=== PATIENT | female | born 1970 | race Hispanic/Latino ===

== ENCOUNTER 2019-06-01 13:40 | Emergency (ER) | payer BC ==
[~2019-06-01] VITALS: Ht 162.6 cm; Wt 74.6 kg
--- OUTSIDE RECORDS SUMMARY | 2019-06-01 13:44 | XMS REPORT | Summary of Care ---
Author Author [facility] [place] Organization [facility] [place] Address Unknown Phone Unavailable Encounter HQ Encntr_alicassandra(FIN) [id number] Date(s): 03/12/16 - 03/12/16 [facility] [place] [address] [place] [phone] Discharge Disposition: Home Attending Physician: Agata Meehan DO Vital Signs No data available for this section Problem List No data available for this section Allergies, Adverse Reactions, Alerts No data available for this section Medications No data available for this section Results No data available for this section Immunizations No data available for this section Procedures No data available for this section Social History No data available for this section Assessment and Plan No data available for this section
--- OUTSIDE RECORDS SUMMARY | 2019-06-01 13:44 | XMS REPORT | Summary of Care ---
Author Organization Unknown Address Unknown Phone Unavailable Encounter HQ Encntr_alias([facility]) [id number] Date(s): 10/30/14 - 10/30/14 [facility] Outpatient Imaging - [id number] [place] [address] [phone] Discharge Disposition: Home Physician Attending: Agata Meehan DO Vital Signs No data [...]
--- OUTSIDE RECORDS SUMMARY | 2019-06-01 13:44 | XMS REPORT | Summary of Care ---
Author Organization Unknown Address Unknown Phone Unavailable Encounter HQ Encntr_alias([facility]) [id number] Date(s): 01/18/14 - 01/18/14 [facility] Outpatient Imaging - [address] [address] [place] Discharge Disposition: Home Physician Attending: Mayelin Arroyo MD Reason for Visit V76.12 - SCREEN MAMMOGRA Problem List No data available for this section Allergies, Adverse Reactions, Alerts No data available for this section Medications No data available for this section Medications Administered During Your Visit No data available for this section Immunizations No data available for this section
--- OUTSIDE RECORDS SUMMARY | 2019-06-01 13:44 | XMS REPORT | Summary of Care ---
Author Organization Unknown Address Unknown Phone Unavailable Encounter HQ Encntr_alias([facility]) [id number] Date(s): 02/04/15 - 02/04/15 [facility] Outpatient Imaging - [address] [address] [phone] Discharge Disposition: Home Physician Attending: Mayelin Arroyo MD Vital Signs No data available for this [...]
--- OUTSIDE RECORDS SUMMARY | 2019-06-01 13:44 | XMS REPORT | Summary of Care ---
Author Organization Unknown Address Unknown Phone Unavailable Encounter HQ Encntr_brian([facility]) [id number] Date(s): 11/24/14 - 12/23/14 [facility] Discharge Disposition: Home Physician Attending: Agata Meehan [...]
--- OUTSIDE RECORDS SUMMARY | 2019-06-01 13:44 | XMS REPORT | Continuity of Care Document ---
Author Author [employer] Organization [employer] Address Unknown Phone Unavailable Care Team Providers Care Personal Care Aide Name Role Phone [email or web address] Information [employer] Unavailable Unavailable Problems Problem Status Onset Date Classification Date Reported Comments Source Encounter for screening mammogram for malignant neoplasm of breast 06/30/2018 01/15/2019 [facility] [place] Z12.31 - ENCNTR SCREEN MAMMOGRAM FOR MA Active 01/25/2016 [facility] [place] V76.12 - SCREEN MAMMOGRA Active 09/13/2012 [facility] [place] BILATERAL LEGS Active [facility] Medications No Data Provided for This Section Allergies, Adverse Reactions, Alerts No Known Medication Allergies Immunizations No Data Provided for This Section Results No Data Provided for This Section Pathology Reports No Data Provided for This Section Diagnostic Reports Report Value Date Source Breast Mammo Scrn GERRY incl CAD [place] BILATERAL DIGITAL SCREENING MAMMOGRAM WITH CAD: 06/28/2018 CLINICAL: Encounter For Screening Mammogram For Malignant Neoplasm Of Breast/Z12.31. Current study was evaluated with a Computer Aided Detection (CAD) system. COMPARISON:Comparison is made to exams dated: 03/12/2016 mammogram, 02/04/2015 mammogram, 01/18/2014 mammogram, 09/15/2012 mammogram - [facility], and 05/27/2011 mammogram - [facility] [place] [place]. TECHNIQUE: Mammographic views were obtained using digital acquisition. Current study was also evaluated with a Computer Aided Detection (CAD) system. FINDINGS: The tissue of both breasts is heterogeneously dense, which could obscure detection of small masses. There are benign calcifications in both breasts. No significant masses, calcifications, or other findings are seen in either breast. There has been no significant interval change. IMPRESSION: BENIGN RECOMMENDATION:There is no mammographic evidence of malignancy. A 1 year screening mammogram is recommended.(06/29/2019) This exam was interpreted at [id number] for JOANNE Urbina, 15. Professional services are provided by the [facility]. Geronimo Tony M.D. /penrad:06/28/2018 08:37:29 Christmas Tree Grower(s): May Maria RT(R)(M), [facility] letter sent: BI-RADS 1/2 Dense Mammogram BI-RADS: 2 Benign 06/28/2018 [facility] [place] Digital Mammo Screening Gerry [place] - DIGITAL MAMMO SCREENING GERRY [place] BILATERAL DIGITAL SCREENING MAMMOGRAM WITH CAD: 03/12/2016 CLINICAL: Routine. Current study was evaluated with a Computer Aided Detection (CAD) system. Comparison is made to exams dated: 02/04/2015 mammogram, 01/18/2014 mammogram, 09/15/2012 mammogram - [facility], 05/27/2011 mammogram, 05/13/2010 mammogram and 10/03/2006 mammogram - [facility] [place] [place]. The tissue of both breasts is extremely dense. This may lower the sensitivity of mammography. No significant masses, calcifications, or other findings are seen in either breast. There has been no significant interval change. IMPRESSION: NEGATIVE There is no mammographic evidence of malignancy. A 1 year screening mammogram is recommended. [place] M.D. md/penrad:03/14/2016 10:30:28 Christmas Tree Grower: Elisha Blanton RT(R)(M), [facility] This exam was dictated and interpreted by [id number] for JOANNE Jacobs. letter sent: Normal Henda Mammogram BI-RADS: 1 Negative 03/12/2016 [facility] [place] Digital Mammo Screening Gerry [place] - DIGITAL MAMMO SCREENING GERRY [place] BILATERAL DIGITAL SCREENING MAMMOGRAM WITH CAD: 02/04/2015 CLINICAL: Routine. Current study was evaluated with a Computer Aided Detection (CAD) system. Comparison is made to exams dated: 05/13/2010 mammogram, 05/27/2011 mammogram - [facility] [place], 09/15/2012 mammogram and 01/18/2014 mammogram - [facility]. The tissue of both breasts is extremely dense. This may lower the sensitivity of mammography. No significant masses, calcifications, or other findings are seen in either breast. There has been no significant interval change. IMPRESSION: NEGATIVE There is no mammographic evidence of malignancy. A 1 year screening mammogram is recommended. Dr. Yimi Mendoza M.D. [facility]/penrad:02/04/2015 11:37:21 Christmas Tree Grower: May Maria RT(R)(M), [facility] This exam was dictated and interpreted by [id number] for Ciara. letter sent: Normal exam Mammogram BI-RADS: 1 Negative 02/04/2015 [facility] Urbina Knee 1-2 Views Bilateral DX HISTORY: Pain TECHNIQUE: Two views of the bilateral knees COMPARISON: None FINDINGS: There is no acute fracture or dislocation. No suspicious osseous lesions. Joint spaces are well maintained. Overlying soft tissues are within normal limits. IMPRESSION: No acute osseous abnormality. 10/30/2014 [facility] Urb[facility] Digital Mammo Screening [place] - DIGITAL MAMMO SCREENING GERRY [place] BILATERAL DIGITAL SCREENING MAMMOGRAM WITH CAD: 01/18/2014 CLINICAL: V76.12 Other Screening Mammogram. Current study was evaluated with a Computer Aided Detection (CAD) system. Comparison is made to exams dated: 10/03/2006 mammogram, 05/13/2010 mammogram, 05/27/2011 mammogram - [facility] [place] and 09/15/2012 mammogram - [facility]. The tissue of both breasts is extremely dense. This may lower the sensitivity of mammography. No significant masses, calcifications, or other findings are seen in either breast. There has been no significant interval change. IMPRESSION: NEGATIVE There is no mammographic evidence of malignancy. A screening mammogram in one year is recommended. Dr. Ailyn Castorena D.O. /penrad:01/20/2014 10:19:07 Christmas Tree Grower: Aranza Machuca RT(R)(M), [facility] This exam was dictated and interpreted by [id number] for Raphael Jacobs. letter sent: Normal exam Mammogram BI-RADS: 1 Negative 01/18/2014 [facility] Urbina Consultation Notes No Data Provided for This Section Discharge Summaries No Data Provided for This Section History and Physicals No Data Provided for This Section Vital Signs No Data Provided for This Section Encounters Location Location Details Encounter Type Encounter Number Reason For Visit Attending Provider ADM Date DC Date Status Source OD [id number] V76.12 - SCREEN MAMMOGRA DAKOTAH SAMSYES 09/15/2012 Active [facility] [place] [facility] - [place] [facility] [id number] Dakotah-Brandy Arroyo 01/18/2014 01/19/2014 [facility] [place] [facility] [place] [facility] [id number] [facility] Shefali 10/30/2014 10/31/2014 [facility] [place] [facility] Therapy Patients [id number] [facility] Shefali 11/24/2014 12/24/2014 [facility] Outpatient Imaging - [place] [facility] [id number] Dakotah-Brandy Arroyo 02/04/2015 02/05/2015 [facility] [place] [facility] Out[facility] - [place] [facility] [id number] [facility] Shefali 03/12/2016 03/13/2016 [facility] [place] [facility] Out[facility] - [place] [facility] [id number] Dakotah-Brandy Arroyo 06/28/2018 06/29/2018 [facility] [place] Procedures No Data Provided for This Section Assessment and Plan No Data Provided for This Section Plan of Care No Data Provided for This Section Social History Social History Date Source No data available for this section 06/29/2018 [facility] [place] No data available for this section 12/24/2014 [facility] Family History No Data Provided for This Section Advance Directives No Data Provided for This Section Functional Status No Data Provided for This Section
[2019-06-01] MEDS ORDERED: KETOROLAC TROMETHAMINE 30 MG/ML VIAL IV NR (14:00)
[2019-06-01] MEDS ORDERED: SODIUM CHLORIDE FLUSH 10 ML SYR INJ PRN (14:00)
[2019-06-01] MEDS ORDERED: SODIUM CHLORIDE 0.9% 1000ML 1,000 ML IV SCH (14:00)
[2019-06-01] MEDS ORDERED: ONDANSETRON HCL INJ 2MG/ML 2ML 2 MG/ML VIAL ONE (14:11)
[2019-06-01] MEDS ORDERED: ONDANSETRON HCL INJ 2MG/ML 2ML 2 MG/ML VIAL IV STA (14:14)
[2019-06-01] MEDS ORDERED: ONDANSETRON HCL INJ 2MG/ML 2ML 2 MG/ML VIAL IV NR (14:30)
[2019-06-01] MEDS ORDERED: POTASSIUM CHLORIDE 20 MEQ TAB CR PO NR (14:30)
[2019-06-01] MEDS ORDERED: PROMETHAZINE 12.5MG/ NACL 0.9% 12.5 MG/50 ML BAG IV STA (14:50)
[2019-06-01] MEDS ORDERED: SODIUM CHLORIDE 0.9% 100 ML ONE (14:56)
[2019-06-01] MEDS ORDERED: PROMETHAZINE HCL (IM) 25 MG/ML VIAL ONE (14:56)
[2019-06-01] MEDS ORDERED: MORPHINE SULFATE 2 MG/ML SYR 1ML IV NR (15:11)
[2019-06-01] MEDS ORDERED: MORPHINE SULFATE INJ 4 MG/ML INJ 1ML ONE (15:22)
--- NOTE | 2019-06-01 15:38 | Diagnostic Imaging Report ---
EXAM: CT Abdomen and Pelvis WITHOUT contrast INDICATION: Right flank pain COMPARISON: None. TECHNIQUE: Abdomen and pelvis were scanned utilizing a multidetector helical scanner from the lung base to the pubic symphysis without administration of IV contrast. Absence of intravenous contrast decreases sensitivity for detection of focal lesions and vascular pathology. Coronal and sagittal reformations were obtained. Routine protocol was performed. IV CONTRAST: None ORAL CONTRAST: None COMPLICATIONS: None RADIATION DOSE: Total DLP: 722 mGy*cm Estimated effective dose: (DLP x 0.015 x size factor) mSv CTDIvol has been reviewed. It is below the limits set by the Radiation Protocol Committee (RPC). Dose modulation, iterative reconstruction, and/or weight based adjustment of the mA/kV was utilized to reduce the radiation dose to as low as reasonably achievable. FINDINGS: LINES and TUBES: None. LOWER THORAX: Unremarkable HEPATOBILIARY: Decreased hepatic attenuation. No focal hepatic lesions. No biliary ductal dilation. GALLBLADDER: No radio-opaque stones or sludge. No wall thickening. SPLEEN: No splenomegaly. PANCREAS: No focal masses or ductal dilatation. ADRENALS: No adrenal nodules KIDNEYS/URETERS: A 2 mm obstructive calculus in the distal right ureter with mild upstream right hydroureteronephrosis. A punctate calculus in a right renal interpolar minor calyx (series 3 image 58). No renal masses. GI TRACT: No abnormal distention, wall thickening, or evidence of bowel obstruction. There are diverticula within the colon without evidence of diverticulitis. Appendix is normal. PELVIC ORGANS/BLADDER: Bladder is decompressed. Retroflex uterus.. LYMPH NODES: No lymphadenopathy. VESSELS: There is mild atherosclerotic disease in the aorta and major arterial branches. PERITONEUM / RETROPERITONEUM: No free air or fluid. BONES: There are degenerative changes in the lumbar spine. SOFT TISSUES: Unremarkable. IMPRESSION: 1. A 2 mm obstructive calculus in the distal right ureter with mild upstream right hydroureteronephrosis. 2. Colonic diverticulosis without diverticulitis. 3. Hepatic steatosis. Signed by: Luis Ocampo DO on 06/01/2019 3:34 PM
[2019-06-01] MEDS ORDERED: POTASSIUM CHLORIDE 20 MEQ TAB CR PO ONE (15:47)
[2019-06-01 16:17] VITALS: BP 150/69
== END 2019-06-01 16:28 | disposition home or self-care (01) ==
LOC: FSED 13:40
DX: R10.31 Right lower quadrant pain (principal); R11.0 Nausea; N20.1 Calculus of ureter; K52.9 Noninfective gastroenteritis and colitis, unspecified; E87.6 Hypokalemia; R73.9 Hyperglycemia, unspecified
CPT/HCPCS: 36415; 74176; 80048; 80076; 81003; 81025; 83735; 85025; 96374; 96375; 99284; J1885; J2270; J2405; J2550; J7030; J7050